=== PATIENT | female | born 1960 | race Caucasian/White ===

== ENCOUNTER 2023-10-19 04:46 | Emergency (ER) | payer BC, SELFPAY ==
[2023-10-19 04:49] VITALS: BP 140/82
[2023-10-19 05:07] VITALS: BMI 37.1
[2023-10-19 06:00] VITALS: BP 142/80
--- NOTE | 2023-10-19 06:43 | ED.GENMED ---
History of Present Illness
General
Chief Complaint: Headache
Time Seen by Provider: 10/19/23 06:43
Travel History
Have you had any contact with someone who has COVID-19?: No
Do you have any symptoms of coronavirus? Fever > 100 degrees, chills, cough, shortness of breath, sore throat, loss of taste or smell, muscle aches, or headache?: No
History of Present Illness
History of Present Illness:
HPI: Patient presents with a week of migraine type symptoms. This feels similar to prior migraine type headaches. She has associated nausea and photophobia. She at times has had some left-sided facial paresthesias and was described to have
complicated migraines in the past.
EXAM:
GENERAL: Well appearing but appears somewhat uncomfortable
HEENT: Moist oral mucosa
CARDIOVASCULAR: No murmurs, normal heart rate, regular rhythm, No chest wall tenderness
PULMONARY: No respiratory distress, breath sounds are clear and equal
ABDOMEN: Soft with no peritoneal signs, no tenderness, elevated BMI
NEUROLOGIC: Excellent strength all extremities, no coordination deficits
PSYCHIATRIC: Appropriate mental status, normal insight and judgement
EXTREMITIES: Nontender, no edema, moves all extremities equally
SKIN: No rash, no lesions
TIME OF INITIAL ENCOUNTER: 7 AM
NUMBER AND COMPLEXITY OF PROBLEMS ADDRESSED AT THE ENCOUNTER
� Chronic conditions affecting care: Diverticulitis, hyperlipidemia, WI, migraines, anxiety/depression
� Acute Exacerbation and/or Progression of Chronic Illness: Acute exacerbation of chronic migraine
� Differential Diagnosis includes: Acute exacerbation of chronic migraine, complicated migraine, nonspecific headache
AMOUNT AND/OR COMPLEXITY OF DATA TO BE REVIEWED AND ANALYZED
� I performed an independent evaluation of and my interpretation is:
EKG:
CT:
X-rays:
Laboratory Studies:
Other:
� Review of other/old records: CT brain in 2022 was unremarkable
� Clinical information was obtained by an independent historian: None needed
� Prescriptions/Medications Considered but not given:
� Further testing considered but not performed: Considered CT imaging however the patient has had CT imaging of the past and has had similar episodes in the past
RISK OF COMPLICATIONS AND/OR MORBIDITY OR MORTALITY OF PATIENT MANAGEMENT
� Social determinants of health affecting care: Lives at home
� Discussion with other providers:
� Escalation of care including admission/observation vs risk of discharge considered: The patient was given Toradol along with Reglan and Benadryl�I reassessed the patient at about 9 AM and she was feeling improved but wanted to
sleep for another half hour. I am currently told as of 9:40 AM that the patient had eloped. Overall she was improved and had told me that she was going to call a neighbor for a ride home.
Past History
Past History
ED Past Medical History: CAD (RCA stent 11/2019), HTN, Hypercholesterolemia, Hypothyroidism (Anxiety) and Other (Migraines ,diverticulitis, Cellulitis, Ileitis)
ED Past Surgical History: Bowel resection (with ileostomy reversal), Cardiac (RCA stent 11/2019), Gynecological (Total Hysterectomy) and Orthopedic
Patient has exhibited threatening behavior?: No
Social History
Tobacco: Smoker
Alcohol: None
Drug: Marijuana
Personal:
Living: with family
Employment: Employed
Family History
Family History: Other (She has a father with migraine headaches)
Phy Exam
Physical Exam
Physical Exam:
See HPI
Course
Orders/Labs/Results
Orders:
Orders
10/19/23 06:47
0.9% Sodium Chloride 1000 ml [Nss] 1,000 ml IV BOLUS
Diphenhydramine [Benadryl] 25 mg IV NOW STA
Ketorolac [Toradol] 15 mg IV NOW STA
Metoclopramide [Reglan] 10 mg IV NOW STA
Vital Signs
Initial and Last Documented VS:
Initial Vital Signs
Temp Pulse Resp BP Pulse Ox
98.4 F 88 22 140/82 96
10/19/23 04:49 10/19/23 04:49 10/19/23 04:49 10/19/23 04:49 10/19/23 04:49
Last Documented Vital Signs
Temp Pulse Resp BP Pulse Ox
98.4 F 85 16 142/80 98
10/19/23 04:49 10/19/23 06:00 10/19/23 06:00 10/19/23 06:00 10/19/23 06:00
*Critical Care Note
Total Time (30-74mins, 75-104mins- exclusive of procedures): Not Applicable
ED Attending Note
-
Portions of this chart may have been created with voice recognition software.� Occasional wrong word or��sound alike� substitutions may have occurred due to the inherent limitations of voice recognition software.
Discharge Plan
Departure
Patient Disposition: Elopement
Date of Disposition: 10/19/23
Time of Disposition: 09:41
Patient with high blood pressure during this ER visit?: Yes
Discharge Problem:
Migraine
Prescriptions:
No Action
diazepam 5 MG tablet
10 mg PO HS PRN (Reason: sleep issues)
desvenlafaxine succinate [Pristiq] 50 MG tablet extended release 24 hr
50 mg PO DAILY
aspirin 81 MG tablet,chewable
81 mg PO DAILY 0RF
lisinopril 2.5 MG tablet
2.5 mg PO DAILY Qty: 90 3RF
metoprolol succinate 50 MG tablet extended release 24 hr
50 mg PO DAILY Qty: 90 3RF
nitroglycerin 0.4 MG tablet, sublingual
0.4 mg sublingual [id number] PRN (Reason: chest pain) Qty: 25 2RF
ibuprofen [Advil] 200 mg Tablet
400 mg PO Q6H PRN (Reason: headache)
Medical Marijuana
5 mg PO DAILYPRN PRN (Reason: migraines)
Rx Instructions:
patient takes in gummy form, cuts 10 mg gummy in half
atorvastatin 40 MG tablet
40 mg PO HS
nitrofurantoin monohyd/m-cryst [Macrobid] 100 mg capsule
100 mg PO Q12H 5 Days Qty: 9 0RF
Referrals:
Sancho Sage DO [Family Provider] -
Interventions
Interventions:
*Risk Screen - Suicide Last Done: 10/19/23 04:49
*General Assessment Last Done: 10/19/23 05:07
*Neglect/Abuse Screening Last Done: 10/19/23 04:49
ED- Fall Risk Assessment Last Done: 10/19/23 05:07
*ED COVID-19 Vaccine History Last Done: 10/19/23 05:07
*Nursing Disposition Last Done: 10/19/23 10:04
ED- Neurological Assessment Last Done: 10/19/23 05:07
Discharge Date and Time
Discharge Date/Time: 10/19/23 09:50
[2023-10-19] MEDS: NSS 1000 IV (07:52)
[2023-10-19] MEDS: BENADRYL 25 MG IV (07:53)
[2023-10-19] MEDS: TORADOL 15 MG IV (07:53)
[2023-10-19] MEDS: REGLAN 10 MG IV (07:54)
--- NOTE | 2023-10-19 09:45 | EDRN ---
Went into reassess patient's pain level and patient not in the room. Gown on the stretcher and IV was in the trash can. Spoke to and he stated that when he spoke to the patient around 9:15 patient stated that she was feeling better
and needed about another 30-45 minutes before being discharged. He did not discharge the patient yet. Patient told him that she was calling a friend to come get her.
--- NOTE | 2023-10-19 10:05 | EDRN ---
Message left on patient's voicemail.
== END 2023-10-19 09:50 | disposition left against medical advice (07) ==
LOC: EMR 04:46
PROVIDERS: EMERGENCY PHYSICIAN Emergency Medicine; FAMILY PHYSICIAN Family Medicine
DX: G43.909 Migraine, unspecified, not intractable, without status migrainosus (principal); F17.200 Nicotine dependence, unspecified, uncomplicated; R03.0 Elevated blood-pressure reading, without diagnosis of hypertension; Z53.29 Procedure and treatment not carried out because of patient's decision for other reasons
CPT/HCPCS: 99284; 96374; 96375 ×2; 96361

== ENCOUNTER → 2023-10-28 17:06 | Outpatient (REF) | payer BC, SELFPAY | LOC: PAVMRI 17:06 | PROVIDERS: ATTENDING PHYSICIAN Family Medicine | DX: G43.709 Chronic migraine without aura, not intractable, without status migrainosus (principal); M54.2 Cervicalgia | CPT/HCPCS: 72141 ==

== ENCOUNTER 2024-02-21 11:14 | Emergency (ER) | payer BC, SELFPAY ==
[2024-02-21 11:23] VITALS: BP 133/107
[2024-02-21 13:30] VITALS: BP 110/82
[2024-02-21] MEDS: TORADOL 15 MG IV (13:31)
[2024-02-21] MEDS: BENADRYL 12.5 MG IV (13:32)
[2024-02-21] MEDS: DECADRON 10 MG IV (13:34)
[2024-02-21] MEDS: COMPAZINE 10 MG IV (13:34)
[2024-02-21 14:00] VITALS: BP 118/74
--- NOTE | 2024-02-21 14:41 | ED.GENMED ---
History of Present Illness
General
Chief Complaint: Headache
Source: patient and records
Exam Limitations: none
Time Seen by Provider: 02/21/24 12:44
Nursing documentation reviewed up to this point in time: agreed with
History of Present Illness
History of Present Illness:
Patient is a 64-year-old female with a history of chronic migraines and for the past 8 days of 14 has had diffuse headaches that are consistent with her migraines. The worst is in the right occipital area where she has cervical spine arthritis in
addition to migraines. Patient was being followed down at [place] by neuro but has not been being helped. Patient has seen her primary care physician for pain management. Patient's nauseous without vomiting. Patient admits to photophobia.
Patient denies any recent illnesses or injuries. Patient denies fever chills, nasal congestion, sore throat or cough. Patient denies any visual difficulties outside of photophobia. Patient denies any speech difficulties, focal weakness or ataxia.
Patient has not taken anything for the pain. Patient does have a rather extensive vascular history.
Past History
Past History
ED Past Medical History: CAD (RCA stent 11/2019), HTN, Hypercholesterolemia, Hypothyroidism (Anxiety) and Other (Migraines ,diverticulitis, Cellulitis, Ileitis)
ED Past Surgical History: Bowel resection (with ileostomy reversal), Cardiac (RCA stent 11/2019), Gynecological (Total Hysterectomy) and Orthopedic
Patient has exhibited threatening behavior?: No
Social History
Tobacco: Smoker
Alcohol: None
Drug: Marijuana
Personal:
Living: with family
Employment: Employed
Family History
Family History: Other (She has a father with migraine headaches)
Review of Systems
Review of Systems
All Other Systems: ROS reviewed and negative except as documented in HPI and ROS
Constitutional: Reports fatigue; Denies fever or chills
EENT: Reports other (Photophobia); Denies sore throat, mouth pain, mouth swelling or runny nose
Respiratory: Reports no symptoms
Cardiac: Reports no symptoms
ABD/GI: Reports nausea; Denies abdominal pain, vomiting or diarrhea
: Reports no symptoms
Musculoskeletal: Reports neck pain
Skin: Reports no symptoms
Neurological: Reports headache; Denies dizzy, weakness or numbness
Hematologic/Lymphatic: Reports no symptoms
Phy Exam
Physical Exam
Physical Exam:
Physical Exam
General: mild to moderate distress, alert and appropriate, well nourished, well hydrated
HENT: Normocephalic and atraumatic with mild tenderness in the right occipital condyle, supple with no lymphadenopathy, no thyromegaly
Eyes: Clear sclera, conjuctiva without injection
Heart: Regular rhythm and rate. No S3, S4. No murmur. No NVD, bruit
Lungs: No respiratory distress, no stridor, lung sounds clear and equal bilaterally
Abdomen: Soft, nontender, BS good
Neuro: Alert and oriented x 3, CN II - XII intact, no motor focality, no cerebellar dysfunction
Skin: no rash
Psychiatric: well kept. interactive and cooperative
Extremities: No edema, cyanosis, tenderness
Course
Orders/Labs/Results
Orders:
Orders
02/21/24 12:52
Dexamethasone Sod Phosphate [Decadron] 10 mg IV NOW STA
Diphenhydramine [Benadryl] 12.5 mg IV NOW STA
Ketorolac [Toradol] 15 mg IV NOW STA
Prochlorperazine [Compazine] 10 mg IV NOW STA
02/21/24 14:40
Fentanyl Citrate/Pf [Sublimaze] 50 mcg IV NOW STA
Vital Signs
Initial and Last Documented VS:
Initial Vital Signs
Temp Pulse Resp BP Pulse Ox
99.0 F 94 18 133/107 97
02/21/24 11:23 02/21/24 11:23 02/21/24 11:23 02/21/24 11:23 02/21/24 11:23
Last Documented Vital Signs
Temp Pulse Resp BP Pulse Ox
99.0 F 85 20 118/74 93
02/21/24 11:23 02/21/24 14:00 02/21/24 14:00 02/21/24 14:00 02/21/24 14:00
*Radiology
Radiology exam reviewed: other (na)
*Pulse Oximetry
Patient hypoxic: no
*EKG
Interpreted by ED Provider?: NA
*Cloth Tester Interpretation
Rate: Cloth Tester- N/A
*Critical Care Note
Total Time (30-74mins, 75-104mins- exclusive of procedures): Not Applicable
Update Note
Update Note:
Patient appears better and had to be awakened from sleep but states her headaches are no better. Anticipate the patient be able to discharge. Unsure whether this is more chronic pain due to cervical arthritis or actual migraines. Patient is
neurologically intact.
ED Attending Note
-
Portions of this chart may have been created with voice recognition software.� Occasional wrong word or��sound alike� substitutions may have occurred due to the inherent limitations of voice recognition software.
Discharge Plan
Departure
Patient Disposition: Home (Routine Discharge)
Date of Disposition: 02/21/24
Time of Disposition: 15:14
Patient with high blood pressure during this ER visit?: No
Condition: Fair
Covid-19: Not Applicable
Discharge Problem:
Headache
Instructions: Migraines (DC), Headache, Adult (DC)
Prescriptions:
New
butorphanol 10 mg/mL spray,non-aerosol
1 spray intranasal Q4H PRN (Reason: headache) Qty: 2.5 0RF
No Action
diazepam 5 MG tablet
10 mg PO HS PRN (Reason: sleep issues)
desvenlafaxine succinate [Pristiq] 50 MG tablet extended release 24 hr
50 mg PO DAILY
aspirin 81 MG tablet,chewable
81 mg PO DAILY 0RF
lisinopril 2.5 MG tablet
2.5 mg PO DAILY Qty: 90 3RF
metoprolol succinate 50 MG tablet extended release 24 hr
50 mg PO DAILY Qty: 90 3RF
nitroglycerin 0.4 MG tablet, sublingual
0.4 mg sublingual [id number] PRN (Reason: chest pain) Qty: 25 2RF
ibuprofen [Advil] 200 mg Tablet
400 mg PO Q6H PRN (Reason: headache)
Medical Marijuana
5 mg PO DAILYPRN PRN (Reason: migraines)
Rx Instructions:
patient takes in gummy form, cuts 10 mg gummy in half
atorvastatin 40 MG tablet
40 mg PO HS
Referrals:
Sancho Sage DO [Family Provider] - Follow up in 2-3 days
Interventions
Interventions:
*Risk Screen - Suicide Last Done: 02/21/24 13:30
*General Assessment Last Done: 02/21/24 11:23
*Neglect/Abuse Screening Last Done: 02/21/24 13:30
*ED COVID-19 Vaccine History Last Done: 02/21/24 11:23
ED- Neurological Assessment Last Done: 02/21/24 13:30
Discharge Date and Time
Print Language: GERMAN
[2024-02-21 15:00] VITALS: BP 128/86
[2024-02-21] MEDS: SUBLIMAZE 50 MCG IV (15:06)
[2024-02-21 16:00] VITALS: BP 121/75
== END 2024-02-21 16:30 | disposition home or self-care (01) ==
LOC: EMR 11:14
PROVIDERS: EMERGENCY PHYSICIAN Emergency Medicine; FAMILY PHYSICIAN Family Medicine
DX: R51.9 Headache, unspecified (principal); F17.200 Nicotine dependence, unspecified, uncomplicated
CPT/HCPCS: 99284; 96374; 96375 ×4

== ENCOUNTER 2024-05-04 06:39 | Emergency (ER) | payer BC, SELFPAY ==
[2024-05-04 06:41] VITALS: BP 126/88
--- NOTE | 2024-05-04 07:31 | ED.GENMED ---
History of Present Illness
General
Chief Complaint: Back Pain
Source: patient
Exam Limitations: none
Time Seen by Provider: 05/04/24 07:10
Nursing documentation reviewed up to this point in time: agreed with
History of Present Illness
History of Present Illness:
Patient is a 63-year-old female who drove to the ER for evaluation of worsening low back pain. Patient reports on Thursday , 4 days ago [place] the chair slipped and she fell landing on her back.
She crawled to get help and was taken to the hospital in the [facility] and diagnosed with compression fractures in her back. She was sent home on ibuprofen and Tylenol however that was not work she reports a family doctor Dr. Sage did get the
CAT scan report and did send her prescription of Percocet to her pharmacy however this is not working. She can barely stand up to get dressed wipe her self and get around. She complains of pain across her lower back it does radiate to her left leg
at times. She does live at times with her though they are . She denies any loss of bowel or bladder. She denies any other injuries and did not hit her head. She does have history of MA with stents and is on aspirin no other blood
thinners. She is a smoker.
Past History
Past History
ED Past Medical History: CAD (RCA stent 11/2019), HTN, Hypercholesterolemia, Hypothyroidism (Anxiety) and Other (Migraines ,diverticulitis, Cellulitis, Ileitis)
ED Past Surgical History: Bowel resection (with ileostomy reversal), Cardiac (RCA stent 11/2019), Gynecological (Total Hysterectomy) and Orthopedic
Patient has exhibited threatening behavior?: No
Social History
Tobacco: Smoker
Alcohol: None
Drug: Marijuana
Personal:
Living: with family
Employment: Employed
Family History
Family History: Other (She has a father with migraine headaches)
Review of Systems
Review of Systems
Allergies reviewed?: Yes
All Other Systems: ROS reviewed and negative except as documented in HPI and ROS
Constitutional: Reports no symptoms; Denies fever
Respiratory: Reports no symptoms
Cardiac: Reports no symptoms
ABD/GI: Reports no symptoms
: Reports no symptoms; Denies incontinence
Musculoskeletal: Reports back pain (low back)
Skin: Reports no symptoms
Neurological: Reports no symptoms
Psychiatric: Reports no symptoms
Phy Exam
General Physical Exam
General Presentation: no apparent distress
General age: appears stated age
General Skin: warm and dry
General Habitus: normal
General Mental: alert
General Hydration: appears well hydrated
Neurological Exam
Neurological Exam: alert, oriented x3 and other (Normal sensation bilateral extremities normal dorsiflexion plantarflexion)
Musculoskeletal Exam
Musculoskeletal Exam: other (Normal inspection to backup administrator to the mid lumbar region no ecchymosis abrasions)
Course
Orders/Labs/Results
Orders:
Orders
05/04/24 07:32
IV Insert/Care/Rem.- Treatment PRN
0.9% Sodium Chloride 1000 ml [Nss] 1,000 ml IV BOLUS
Morphine Sulfate 2 mg IV NOW STA
05/04/24 07:34
Dexamethasone Sod Phosphate [Decadron] 10 mg IV NOW STA
Lidocaine [Lidocaine 4% Patch] 1 patch TOPICAL NOW STA
Apply Lidocaine patch(s) to:: low ander
05/04/24 07:54
Complete Blood Count/With Diff Urgent
Comprehensive Metabolic Panel Urgent
Abnormal Lab Results
05/04/24
07:54
WBC 11.2 H 10^3/uL
(4.8-10.8)
MPV 11.3 H fL
(7.4-10.4)
Abs Immat Gran (auto) 0.1 H 10^3/uL
(0-0.05)
Absolute Neuts (auto) 8.1 H 10^3/uL
(1.4-6.5)
Absolute Monos (auto) 0.7 H 10^3/uL
(0.1-0.6)
Immature Gran % 0.7 H %
(0-0.5)
Lymphocytes % 16.4 L %
(20.5-51.1)
Glucose 174 H mg/dl
(70-99)
Total Protein 5.9 L g/dl
(6.3-8.2)
05/04/24 07:54
05/04/24 07:54
Vital Signs
Initial and Last Documented VS:
Initial Vital Signs
Temp Pulse Resp BP Pulse Ox
98.9 F 98 20 126/88 95
05/04/24 06:41 05/04/24 06:41 05/04/24 06:41 05/04/24 06:41 05/04/24 06:41
Last Documented Vital Signs
Temp Pulse Resp BP Pulse Ox
98.9 F 86 18 113/66 94
05/04/24 06:41 05/04/24 09:00 05/04/24 09:00 05/04/24 09:00 05/04/24 09:00
MDM/Problems Addressed
MDM/Problems Addressed:
As documented patient is a 63-year-old female who complains of low back pain. She fell off of a chair several days ago and was seen in the [facility]. I did receive paperwork /records from [facility]. She had imaging including
the head and C-spine and lumbar spine. Lumbar spine CAT scan does show small subtle fracture of the right anterior superior aspect of L2.
Patient received morphine here feeling much better ambulatory [id number] to the bathroom with a steady gait. She does want to go home. She has no neurological deficits and is well-appearing. She was instructed by family doctor to alternate
Tylenol Motrin will give her ice short course of oxycodone to take as needed with close outpatient follow-up with family doctor and also recommend orthopedics pain management Dr. Bowles.
*Critical Care Note
Total Time (30-74mins, 75-104mins- exclusive of procedures): Not Applicable
ED Attending Note
-
Portions of this chart may have been created with voice recognition software.� Occasional wrong word or��sound alike� substitutions may have occurred due to the inherent limitations of voice recognition software.
Discharge Plan
Departure
Patient Disposition: Home (Routine Discharge)
Date of Disposition: 05/04/24
Time of Disposition: 10:09
Patient with high blood pressure during this ER visit?: No
Condition: Fair
Covid-19: Not Applicable
Discharge Problem:
Low back pain
Instructions: Low Back Pain (DC), BLOOD PRESSURE
Prescriptions:
New
oxycodone 5 mg capsule
5 mg PO Q8H PRN (Reason: Pain) Qty: 10 0RF
lidocaine 5 % adhesive patch,medicated
1 patch topical DAILY Qty: 15 0RF
Rx Instructions:
remove after 12 hrs
oxycodone 5 mg capsule
5 mg PO Q8H PRN (Reason: Pain) Qty: 10 0RF
No Action
diazepam 5 MG tablet
10 mg PO HS PRN (Reason: sleep issues)
desvenlafaxine succinate [Pristiq] 50 MG tablet extended release 24 hr
50 mg PO DAILY
aspirin 81 MG tablet,chewable
81 mg PO DAILY 0RF
lisinopril 2.5 MG tablet
2.5 mg PO DAILY Qty: 90 3RF
metoprolol succinate 50 MG tablet extended release 24 hr
50 mg PO DAILY Qty: 90 3RF
nitroglycerin 0.4 MG tablet, sublingual
0.4 mg sublingual [id number] PRN (Reason: chest pain) Qty: 25 2RF
ibuprofen [Advil] 200 mg Tablet
400 mg PO Q6H PRN (Reason: headache)
Medical Marijuana
5 mg PO DAILYPRN PRN (Reason: migraines)
Rx Instructions:
patient takes in gummy form, cuts 10 mg gummy in half
atorvastatin 40 MG tablet
40 mg PO HS
butorphanol 10 mg/mL spray,non-aerosol
1 spray intranasal Q4H PRN (Reason: headache) Qty: 2.5 0RF
Referrals:
Pedro Bowles, DO [Non-Admitting Privileges] -
Sancho Sage, [Family Provider] -
Activity Restrictions/Additional Instructions:
As discussed you may continue to alternate between Motrin and Tylenol however if needed you may take oxycodone. This however is a narcotic and will cause drowsiness. No driving or drinking alcohol while taking this medication. This also cause
constipation is recommended you take [id number] laxative like Senokot plus stool softener. A prescription for lidocaine patch was sent to pharmacy take as directed. Follow-up with your family doctor next 2 days as well as orthopedics.
Return if any worsening of symptoms if increased pain loss of bowel or bladder numbness tingling weakness in extremities.
Do not use your medical marijuana for migraines while taking this medication.,
Interventions
Interventions:
*Risk Screen - Suicide Last Done: 05/04/24 06:41
*General Assessment Last Done: 05/04/24 06:41
*Neglect/Abuse Screening Last Done: 05/04/24 06:41
*ED COVID-19 Vaccine History Last Done: 05/04/24 07:58
ED-Musculoskeletal Assessment Last Done: 05/04/24 07:56
Discharge Date and Time
Print Language: CHILEAN
[2024-05-04] MEDS: NSS 1000 IV (07:51)
[2024-05-04] MEDS: DECADRON 10 MG IV (07:51)
[2024-05-04] MEDS: MORPHINE SULFATE 2 MG IV (07:51)
[2024-05-04] MEDS: LIDOCAINE 4% PATCH 1 PATCH TOPICAL (07:52)
[2024-05-04 07:56] VITALS: BMI 38.5
[2024-05-04 08:00] LABS: % Basophils 0.4 % (0-2); % Immature Granulocytes 0.7 % (0-0.5); % Lymphocytes 16.4 % (20.5-51.1); % Monocytes 6.6 % (1.7-9.3); % Neutrophils 72.9 % (42.2-75.2); Absolute Basophils 0.1 10^3/uL (0-0.2); Absolute Eosinophils 0.3 10^3/uL (0-0.7); Absolute Immature Granulocytes 0.1 10^3/uL (0-0.05); Absolute Lymphocytes 1.8 10^3/uL (1.2-3.4); Absolute Monocytes 0.7 10^3/uL (0.1-0.6); Absolute Neutrophils 8.1 10^3/uL (1.4-6.5); Hematocrit 46.2 % (37.0-47.0); Hemoglobin 15.6 g/dL (12.0-16.0); Mean Corp Hgb Conc. 33.8 g/dL (33.0-37.0); Mean Corpuscular Volume 88.8 fL (81.0-99.0); Mean Platelet Volume 11.3 fL (7.4-10.4); Nucleated Red Blood Cells % 0 %; Platelet Count 197 10^3/uL (130-400); Red Cell Dist. Width 13.1 % (11.5-14.5); White Blood Cell Count 11.2 10^3/uL (4.8-10.8)
[2024-05-04 08:27] LABS: ALT (SGPT) 21 U/L (0-35); AST (SGOT) 19 U/L (14-36); Albumin 3.8 g/dl (3.5-5.0); Alkaline Phosphatase 75 U/L (38-126); Blood Urea Nitrogen 11 mg/dl (7-17); Calcium 9.3 mg/dl (8.4-10.2); Carbon Dioxide 28 mmol/L (22-30); Chloride 102 mmol/L (98-107); Estimated Creatinine Clearance 105 ml/min; Glucose 174 mg/dl (70-99); Potassium 4.6 mmol/L (3.5-5.1); Sodium 138 mmol/L (135-145); Total Bilirubin 0.4 mg/dl (0.2-1.3); Total Protein 5.9 g/dl (6.3-8.2); eGFR > 60.00
[2024-05-04 09:00] VITALS: BP 113/66
[2024-05-04 10:41] VITALS: BP 116/69
== END 2024-05-04 11:19 | disposition home or self-care (01) ==
LOC: EMR 06:39
PROVIDERS: Nurse Practitioner; EMERGENCY PHYSICIAN Emergency Medicine; FAMILY PHYSICIAN Family Medicine
DX: M54.50 Low back pain, unspecified (principal); M79.605 Pain in left leg; S32.009A Unspecified fracture of unspecified lumbar vertebra, initial encounter for closed fracture; W07.XXXA Fall from chair, initial encounter; I10 Essential (primary) hypertension; I25.10 Atherosclerotic heart disease of native coronary artery without angina pectoris; E78.00 Pure hypercholesterolemia, unspecified; E03.9 Hypothyroidism, unspecified; F41.9 Anxiety disorder, unspecified; G43.909 Migraine, unspecified, not intractable, without status migrainosus; K57.92 Diverticulitis of intestine, part unspecified, without perforation or abscess without bleeding; F17.200 Nicotine dependence, unspecified, uncomplicated; I25.2 Old myocardial infarction; Z95.5 Presence of coronary angioplasty implant and graft; Z79.82 Long term (current) use of aspirin; Z98.0 Intestinal bypass and anastomosis status
CPT/HCPCS: 99284; 96374; 96375; 96361; 80053; 85025

== ENCOUNTER 2024-05-06 14:06 | Emergency (ER) | payer BC, SELFPAY ==
[2024-05-06 14:08] VITALS: BP 128/95
[2024-05-06 14:45] VITALS: BMI 32.0
--- NOTE | 2024-05-06 15:15 | ED.GENMED ---
History of Present Illness
General
Chief Complaint: Back Pain
Source: patient
Exam Limitations: none
Time Seen by Provider: 05/06/24 15:10
Nursing documentation reviewed up to this point in time: agreed with
History of Present Illness
History of Present Illness:
63 yr. old female presents back to the ED for low back pain. Pt was seen here 2 d ago.
Last Thursday pt was standing on chair fell and hit her lower back. SHe went to local hospital at that time and was dx with small subtle fx of the right anterior superior aspect of L2. THese results was obtained from [facility] during
last ED visit 2 d ago and results were scanned into chart.
Pt was discharged home on Oxycodone but c/o of continued back pain. She currently is in the middle of a divorce and lives at home with her dog.
She is scheduled to see DR Bowles next .
She feels pain radiating down her left hip. She denies any weakness in lower extremities. She denies any incontinence of bowel or bladder.
She has been taking Tylenol as well.
Past History
Past History
ED Past Medical History: CAD (RCA stent 11/2019), HTN, Hypercholesterolemia, Hypothyroidism (Anxiety) and Other (Migraines ,diverticulitis, Cellulitis, Ileitis)
ED Past Surgical History: Bowel resection (with ileostomy reversal), Cardiac (RCA stent 11/2019), Gynecological (Total Hysterectomy) and Orthopedic
Patient has exhibited threatening behavior?: No
Social History
Tobacco: Smoker
Alcohol: None
Drug: Marijuana
Personal:
Living: with family
Employment: Employed
Family History
Family History: Other (She has a father with migraine headaches)
Phy Exam
General Physical Exam
General Presentation: no apparent distress
General age: appears stated age
General Skin: warm and dry
General Habitus: normal
General Mental: alert
General Hydration: appears well hydrated
Neurological Exam
Neurological Exam: alert, oriented x3 and other (Normal dorsiflexion plantarflexion bilaterally negative straight leg raise; normal distal strength and sensation and reflexes )
Musculoskeletal Exam
Musculoskeletal Exam: full ROM and other (normal inspection )
Skin Exam
Skin Exam: normal color and warm/dry
Psychiatric Exam
Psychiatric Exam: normal mood/affect
Course
Orders/Labs/Results
Orders:
Orders
05/06/24 15:21
Physical Therapy Consult [Pt Eval And Treat] Urgent
Activity Level: Ambulate
05/06/24 16:09
Prednisone [Deltasone] 50 mg PO NOW STA
Vital Signs
Initial and Last Documented VS:
Initial Vital Signs
Temp Pulse Resp BP Pulse Ox
98.3 F 99 18 128/95 93
05/06/24 14:08 05/06/24 14:08 05/06/24 14:08 05/06/24 14:08 05/06/24 14:08
Last Documented Vital Signs
Temp Pulse Resp BP Pulse Ox
98.3 F 99 18 128/95 93
05/06/24 14:08 05/06/24 14:08 05/06/24 14:08 05/06/24 14:08 05/06/24 14:08
MDM/Problems Addressed
Differential Diagnosis Includes:
not limited to: low back pain
MDM/Problems Addressed:
As documented patient is a 63-year-old female who was here 2 days ago for back and previous to that was seen at [facility] in the [facility] after having a fall. CAT scan of the lumbar spine did show subtle fracture right anterior
superior aspect of L2. Patient was seen here 2 days ago and discharged on oxycodone continue to complains of pain. She has some mild radiation to her left hip. She is scheduled to see Dr. Bowles next week. Daughter did however speak with nurse
and has concerns for patient seeking narcotic pain medication. Will hold off on any additional pain medication at home. Patient was evaluate by physical and does ambulate with walker well. I Did write a prescription for patient to have a
walker. She feels comfortable going home will add on steroids. she is in no distress nml neuro exam
Chronic conditions affecting care:
questionable issues with narcotics in the past
*Radiology
Radiology exam reviewed: other (previous ct scan done at outside hospital)
*Pulse Oximetry
Patient hypoxic: no
*Critical Care Note
Total Time (30-74mins, 75-104mins- exclusive of procedures): Not Applicable
ED Attending Note
-
Portions of this chart may have been created with voice recognition software.� Occasional wrong word or��sound alike� substitutions may have occurred due to the inherent limitations of voice recognition software.
Discharge Plan
Departure
Patient Disposition: Home (Routine Discharge)
Date of Disposition: 05/06/24
Time of Disposition: 16:11
Patient with high blood pressure during this ER visit?: Yes
Condition: Fair
Covid-19: Not Applicable
Discharge Problem:
Low back pain
Instructions: Low Back Pain (DC), Radiculopathy (DC), BLOOD PRESSURE
Prescriptions:
New
prednisone 10 mg Tablet
See Rx Instructions .ROUTE .COMPLEX Qty: 30 0RF
Rx Instructions:
Take By Mouth:
40 mg daily x3 days, 30 mg daily x3 days,
20 mg daily x3 days, 10 mg daily x3 days.
No Action
diazepam 5 MG tablet
10 mg PO HS PRN (Reason: sleep issues)
desvenlafaxine succinate [Pristiq] 50 MG tablet extended release 24 hr
50 mg PO DAILY
aspirin 81 MG tablet,chewable
81 mg PO DAILY 0RF
lisinopril 2.5 MG tablet
2.5 mg PO DAILY Qty: 90 3RF
metoprolol succinate 50 MG tablet extended release 24 hr
50 mg PO DAILY Qty: 90 3RF
nitroglycerin 0.4 MG tablet, sublingual
0.4 mg sublingual [id number] PRN (Reason: chest pain) Qty: 25 2RF
ibuprofen [Advil] 200 mg Tablet
400 mg PO Q6H PRN (Reason: headache)
Medical Marijuana
5 mg PO DAILYPRN PRN (Reason: migraines)
Rx Instructions:
patient takes in gummy form, cuts 10 mg gummy in half
atorvastatin 40 MG tablet
40 mg PO HS
butorphanol 10 mg/mL spray,non-aerosol
1 spray intranasal Q4H PRN (Reason: headache) Qty: 2.5 0RF
oxycodone 5 mg capsule
5 mg PO Q8H PRN (Reason: Pain) Qty: 10 0RF
lidocaine 5 % adhesive patch,medicated
1 patch topical DAILY Qty: 15 0RF
Rx Instructions:
remove after 12 hrs
Referrals:
Pedro Bowles DO [Non-Admitting Privileges] -
Sancho Sage DO [Family Provider] -
Activity Restrictions/Additional Instructions:
As discussed complete your pain medication at home and continue to alternate with Tylenol. You were given a dose of steroids here in the ER and a prescription for steroid taper for send your pharmacy take as directed starting tomorrow. Follow-up
with Dr. Bowles in the next several days as scheduled and return if any worsening of symptoms.
Interventions
Interventions:
*Risk Screen - Suicide Last Done: 05/06/24 14:08
*General Assessment Last Done: 05/06/24 14:08
*Neglect/Abuse Screening Last Done: 05/06/24 14:08
ED- Fall Risk Assessment Last Done: 05/06/24 14:45
*ED COVID-19 Vaccine History Last Done: 05/06/24 14:45
*Nursing Disposition Last Done: 05/06/24 16:31
ED-Musculoskeletal Assessment Last Done: 05/06/24 14:45
Discharge Date and Time
Discharge Date/Time: 05/06/24 16:32
Print Language: ALBANIAN
--- NOTE | 2024-05-06 15:36 | EDRN ---
physical therapy currently at the pts bedside
== END 2024-05-06 16:32 | disposition home or self-care (01) ==
LOC: EMR 14:06
PROVIDERS: EMERGENCY PHYSICIAN Student in an Organized Health Care Education/Training Program; FAMILY PHYSICIAN Family Medicine
DX: M54.50 Low back pain, unspecified (principal); M25.552 Pain in left hip; I10 Essential (primary) hypertension; E78.00 Pure hypercholesterolemia, unspecified; E03.9 Hypothyroidism, unspecified; F41.9 Anxiety disorder, unspecified; I25.10 Atherosclerotic heart disease of native coronary artery without angina pectoris; G43.909 Migraine, unspecified, not intractable, without status migrainosus; K57.92 Diverticulitis of intestine, part unspecified, without perforation or abscess without bleeding; F17.200 Nicotine dependence, unspecified, uncomplicated; Z79.82 Long term (current) use of aspirin; Z95.5 Presence of coronary angioplasty implant and graft; Z98.0 Intestinal bypass and anastomosis status
CPT/HCPCS: 99283

== ENCOUNTER 2024-05-07 14:58 | Observation (INO) | payer BC, SELFPAY ==
[2024-05-07] VITALS (10 sets, daily range): BP systolic 124–168; BP diastolic 68–109; BMI 38.6; BMI 38.1
--- NOTE | 2024-05-07 09:36 | ED.GENMED ---
History of Present Illness
General
Chief Complaint: Fall
Source: patient
Exam Limitations: none
Time Seen by Provider: 05/07/24 09:14
Nursing documentation reviewed up to this point in time: agreed with
History of Present Illness
History of Present Illness:
Patient is a 63-year-old female who presents to the ER for low back pain. This is patient's third ER visit. Patient was initially seen May 04 as well as yesterday. She reports she initially fell last week (end of April) while in her
[place] and was seen at [facility]. At that time he had CAT scans which did show lumbar compression fractures. Official records were sent from [facility] which did show small subtle fracture of the right anterior
superior aspect of L2. She was seen here on the second for pain however after pain medication felt better. She has appointment with Dr. Bowles pain management however was seen here yesterday because she could not make it because of pain. Patient
has been taking oxycodone which is not relieving her symptoms. She has felt pain across her low back and into her left leg.
She denies any incontinence of bowel bladder.
Past History
Past History
ED Past Medical History: CAD (RCA stent 11/2019), HTN, Hypercholesterolemia, Hypothyroidism (Anxiety) and Other (Migraines ,diverticulitis, Cellulitis, Ileitis)
ED Past Surgical History: Bowel resection (with ileostomy reversal), Cardiac (RCA stent 11/2019), Gynecological (Total Hysterectomy) and Orthopedic
Patient has exhibited threatening behavior?: No
Social History
Tobacco: Smoker
Alcohol: None
Drug: Marijuana
Personal:
Living: with family
Employment: Employed
Family History
Family History: Other (She has a father with migraine headaches)
Review of Systems
Review of Systems
Allergies reviewed?: Yes
All Other Systems: ROS reviewed and negative except as documented in HPI and ROS
Constitutional: Reports no symptoms
Respiratory: Reports no symptoms
Cardiac: Reports no symptoms
ABD/GI: Reports no symptoms
: Denies incontinence
Musculoskeletal: Reports back pain
Skin: Reports no symptoms
Neurological: Reports no symptoms; Denies weakness
Hematologic/Lymphatic: Reports no symptoms
Psychiatric: Reports no symptoms
Phy Exam
General Physical Exam
General Presentation: no apparent distress
General age: appears stated age
General Skin: warm and dry
General Habitus: normal
General Mental: alert
General Hydration: appears well hydrated
Cardiovascular Exam
Cardiovascular Exam: regular rate/rhythm, no murmur and normal peripheral pulses
Pulmonary Exam
Pulmonary Exam: lungs clear and no respiratory distress
Neurological Exam
Neurological Exam: alert, oriented x3 and other (Normal distal sensation bilateral lower extremities normal dorsiflexion plantarflexion)
Musculoskeletal Exam
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
Skin Exam
Skin Exam: normal color and warm/dry
Psychiatric Exam
Psychiatric Exam: normal mood/affect
Course
Orders/Labs/Results
Orders:
Orders
05/07/24 09:44
IV Insert/Care/Rem.- Treatment PRN
Dexamethasone Sod Phosphate [Decadron] 10 mg IV NOW STA
Morphine Sulfate 4 mg IV NOW STA
05/07/24 09:53
Complete Blood Count/With Diff Urgent
Comprehensive Metabolic Panel Urgent
Abnormal Lab Results
05/07/24
09:53
WBC 11.9 H 10^3/uL
(4.8-10.8)
Hgb 16.1 H g/dL
(12.0-16.0)
MPV 10.8 H fL
(7.4-10.4)
Abs Immat Gran (auto) 0.1 H 10^3/uL
(0-0.05)
Absolute Neuts (auto) 9.3 H 10^3/uL
(1.4-6.5)
Absolute Monos (auto) 0.7 H 10^3/uL
(0.1-0.6)
Immature Gran % 0.8 H %
(0-0.5)
Neutrophils % 77.8 H %
(42.2-75.2)
Lymphocytes % 12.5 L %
(20.5-51.1)
Glucose 127 H mg/dl
(70-99)
Total Protein 6.2 L g/dl
(6.3-8.2)
05/07/24 09:53
05/07/24 09:53
Vital Signs
Initial and Last Documented VS:
Initial Vital Signs
Temp Pulse Resp BP Pulse Ox
98.0 F 81 16 144/96 94
05/07/24 08:38 05/07/24 08:38 05/07/24 08:38 05/07/24 08:38 05/07/24 08:38
Last Documented Vital Signs
Temp Pulse Resp BP Pulse Ox
98.0 F 81 16 144/96 94
05/07/24 08:38 05/07/24 08:38 05/07/24 08:38 05/07/24 08:38 05/07/24 08:38
MDM/Problems Addressed
MDM/Problems Addressed:
This is patient's third ER visit for back pain related to recent diagnosis of compression fracture. Patient has been taking oxycodone and does have an appointment with Dr. Bowles this week however with persistent pain will require admission.
Patient does report pain is across her low back and her left leg but denies any weakness in lower extremities. She is having difficulty however getting around because of pain. She denies any bowel bladder incontinence. Will check labs give a dose
of Decadron pain medication and admit to the hospital service
*Pulse Oximetry
Patient hypoxic: no
*Critical Care Note
Total Time (30-74mins, 75-104mins- exclusive of procedures): Not Applicable
Data Reviewed
Review of Other/Old Records Reveals: Other (Previous ED visits previous scanned report from outpatient hospital of CAT scan lumbar)
Source: patient
ED Attending Note
-
Portions of this chart may have been created with voice recognition software.� Occasional wrong word or��sound alike� substitutions may have occurred due to the inherent limitations of voice recognition software.
Discharge Plan
Departure
Patient Disposition: Admit
Date of Disposition: 05/07/24
Time of Disposition: 10:42
Admit to: Med/Surg
Admit to doctor: hospitalist
Presentation/result/management discussed w/ accepting MD/DO: Hospitalist
Patient with high blood pressure during this ER visit?: Yes
Condition: Fair
Covid-19: Not Applicable
Discharge Problem:
Low back pain
Prescriptions:
No Action
diazepam 5 MG tablet
10 mg PO HS PRN (Reason: sleep issues)
desvenlafaxine succinate [Pristiq] 50 MG tablet extended release 24 hr
50 mg PO DAILY
aspirin 81 MG tablet,chewable
81 mg PO DAILY 0RF
lisinopril 2.5 MG tablet
2.5 mg PO DAILY Qty: 90 3RF
metoprolol succinate 50 MG tablet extended release 24 hr
50 mg PO DAILY Qty: 90 3RF
nitroglycerin 0.4 MG tablet, sublingual
0.4 mg sublingual [id number] PRN (Reason: chest pain) Qty: 25 2RF
ibuprofen [Advil] 200 mg Tablet
400 mg PO Q6H PRN (Reason: headache)
Medical Marijuana
5 mg PO DAILYPRN PRN (Reason: migraines)
Rx Instructions:
patient takes in gummy form, cuts 10 mg gummy in half
atorvastatin 40 MG tablet
40 mg PO HS
butorphanol 10 mg/mL spray,non-aerosol
1 spray intranasal Q4H PRN (Reason: headache) Qty: 2.5 0RF
oxycodone 5 mg capsule
5 mg PO Q8H PRN (Reason: Pain) Qty: 10 0RF
lidocaine 5 % adhesive patch,medicated
1 patch topical DAILY Qty: 15 0RF
Rx Instructions:
remove after 12 hrs
prednisone 10 mg Tablet
See Rx Instructions .ROUTE .COMPLEX Qty: 30 0RF
Rx Instructions:
Take By Mouth:
40 mg daily x3 days, 30 mg daily x3 days,
20 mg daily x3 days, 10 mg daily x3 days.
Referrals:
Sancho Sage DO [Family Provider] -
Interventions
Interventions:
*Risk Screen - Suicide Last Done: 05/07/24 08:38
*General Assessment Last Done: 05/07/24 08:38
*Neglect/Abuse Screening Last Done: 05/07/24 08:38
*ED COVID-19 Vaccine History Last Done: 05/07/24 08:38
ED-Musculoskeletal Assessment Last Done: 05/07/24 08:50
ED- Neurological Assessment Last Done: 05/07/24 08:50
ED-Skin Assessment Last Done: 05/07/24 08:50
Discharge Date and Time
Print Language: KENYAN
[2024-05-07] MEDS: MORPHINE SULFATE 4 MG IV (10:05)
[2024-05-07] MEDS: DECADRON 10 MG IV (10:05)
[2024-05-07 10:16] LABS: % Basophils 0.5 % (0-2); % Eosinophils 2.3 % (0-6); % Immature Granulocytes 0.8 % (0-0.5); % Lymphocytes 12.5 % (20.5-51.1); % Monocytes 6.1 % (1.7-9.3); % Neutrophils 77.8 % (42.2-75.2); Absolute Basophils 0.1 10^3/uL (0-0.2); Absolute Eosinophils 0.3 10^3/uL (0-0.7); Absolute Immature Granulocytes 0.1 10^3/uL (0-0.05); Absolute Lymphocytes 1.5 10^3/uL (1.2-3.4); Absolute Monocytes 0.7 10^3/uL (0.1-0.6); Absolute Neutrophils 9.3 10^3/uL (1.4-6.5); Hemoglobin 16.1 g/dL (12.0-16.0); Mean Corp Hgb Conc. 34.3 g/dL (33.0-37.0); Mean Corpuscular Hgb 30.3 pg (27.0-31.0); Mean Corpuscular Volume 88.3 fL (81.0-99.0); Mean Platelet Volume 10.8 fL (7.4-10.4); Nucleated Red Blood Cells % 0 %; Platelet Count 195 10^3/uL (130-400); Red Blood Cell Count 5.32 10^6/uL (4.20-5.40); Red Cell Dist. Width 13.2 % (11.5-14.5); White Blood Cell Count 11.9 10^3/uL (4.8-10.8)
[2024-05-07 10:30] LABS: ALT (SGPT) 19 U/L (0-35); AST (SGOT) 17 U/L (14-36); Alkaline Phosphatase 72 U/L (38-126); Blood Urea Nitrogen 13 mg/dl (7-17); Calcium 9.4 mg/dl (8.4-10.2); Carbon Dioxide 28 mmol/L (22-30); Chloride 106 mmol/L (98-107); Estimated Creatinine Clearance 105 ml/min; Glucose 127 mg/dl (70-99); Potassium 4.4 mmol/L (3.5-5.1); Sodium 142 mmol/L (135-145); Total Bilirubin 0.3 mg/dl (0.2-1.3); Total Protein 6.2 g/dl (6.3-8.2); eGFR > 60.00
--- NOTE | 2024-05-07 14:08 | HPS.HSE ---
Family Physician
-
Family Physician: Sancho Sage
Chief Complaint
-
Back pain
History of Present Illness
63-year-old woman who was here 2 days ago for back pain, and previous to that was seen at [facility] (in the [place]) after having a fall from a chair. CT scan of the lumbar spine did show subtle fracture right anterior superior aspect
of L2. 2 days ago she was discharged from on oxycodone, but continues to complains of pain. The pain has some mild radiation to the left hip. She is scheduled to see Dr. Bowles next week. Her daughter had concerns that her mom was seeking
narcotic pain medication. 2 days ago, she was evaluated by PT and was able to ambulate well with a walker. Patient felt comfortable going home and was placed on steroids. At home she was unable to ambulate without intolerable pain. She states
that the steroids are not enough to allow her to ambulate at this point. She states that she uses oxycodone as needed for chronic neck pain and migraine headaches.
Medical History
Past Medical History
Past Medical History: Reports Other
Additional Past Medical History:
LUIS ALFREDO (generalized anxiety disorder)
Primary osteoarthritis of left knee
Essential hypertension
Chronic migraine
Status post laparoscopic-assisted sigmoidectomy
Status post arthroscopy of right knee
Vitamin D deficiency
Smokes 11 to 20 cigarettes per day
NSVT (nonsustained ventricular tachycardia)
History of acute inferior wall [place]
Carotid atherosclerosis, bilateral
type 2 diabetes mellitus with other specified complication
Benzodiazepine dependence, continuous
Type 2 diabetes mellitus with diabetic peripheral angiopathy without gangrene
Coronary artery disease involving [place] coronary artery of [place] heart without angina pectoris
Mixed hyperlipidemia
Moderate episode of recurrent major depressive disorder
Atherosclerosis of aorta
Hyperlipidemia, unspecified
Morbid (severe) obesity due to excess calories
Past Surgical History: Reports Other
Additional Past Surgical History:
See above
Social History
Tobacco: Smoker
Alcohol: None
Drug: None
Living: Alone
Family History
Family History: Not pertinent
Allergies / Home Medications
Allergies reflects when Allergies were last updated in [employer].
Home Medications with original date entered in [facility]
Allergy/Medication List:
Allergies
Allergy/AdvReac Type Severity Reaction Status Date / Time
No Known Allergies Allergy Verified 05/07/24 08:43
Home Medications
desvenlafaxine succinate 50 mg tablet,extended release 24 hr (Pristiq) 50 mg PO DAILY Mental Health/Anxiety 10/23/16
diazepam 5 mg tablet 10 mg PO HS PRN sleep issues 10/23/16
aspirin 81 mg chewable tablet 81 mg PO DAILY 11/15/19
lisinopril 2.5 mg tablet 2.5 mg PO DAILY #90 tabs 11/15/19
metoprolol succinate 50 mg tablet,extended release 24 hr 50 mg PO DAILY #90 tabs 11/15/19
nitroglycerin 0.4 mg sublingual tablet 0.4 mg sublingual [id number] PRN chest pain #25 tabs 11/15/19
Medical Marijuana 5 mg PO DAILYPRN PRN migraines 02/12/23
atorvastatin 40 mg tablet 40 mg PO HS High Cholesterol 02/12/23
ibuprofen 200 mg tablet (Advil) 400 mg PO Q6H PRN headache 02/12/23
butorphanol 10 mg/mL nasal spray 1 spray intranasal Q4H PRN headache #2.5 mL 02/21/24
lidocaine 5 % topical patch 1 patch topical DAILY #15 ea 05/04/24
oxycodone 5 mg capsule 5 mg PO Q8H PRN Pain #10 caps 05/04/24
prednisone 10 mg tablet See Rx Instructions .Route .COMPLEX #30 tabs 05/06/24
Review of Systems
-
History Source: Patient
A 12 point ROS was completed and negative except as noted: Yes
Physical Exam
Vital Signs
Vital Signs
Temp Pulse Resp BP Pulse Ox
98.0 F 85 16 156/94 98
05/07/24 08:38 05/07/24 13:01 05/07/24 13:01 05/07/24 13:01 05/07/24 13:01
Physical Exam
General: Well Developed, Well Nourished, Pain and Obese
HEENT: NormoCephalic, Moist mucous membranes, [place] Conjunctivae, No Ptosis, Nose Appears Normal and Ears Appear Normal
Respiratory: Clear
Cardiac: S1/S2 and Regular Rhythm
GI: Soft, Non Tender and Non Distended
Musculoskeletal: No Clubbing, No Cyanosis and No Edema
Skin: Warm and Dry; No Rash
Neuro: Awake, Alert, Oriented and AO x 3
Psych: Calm
Laboratory Results
-
05/07/24 09:53
05/07/24 09:53
Laboratory Results
Total Bilirubin 0.3 mg/dl (0.2-1.3) 05/07/24 09:53
AST 17 U/L (14-36) 05/07/24 09:53
ALT 19 U/L (0-35) 05/07/24 09:53
Alkaline Phosphatase 72 U/L (38-126) 05/07/24 09:53
Data Reviewed
-
Lab Data: Labs Reviewed by me
Impression/Plan
-
IMPRESSION:
63 woman with fracture of spine and pain. Difficulty ambulation.
PLAN:
1. Pain on spine after fall and fracture. She takes oxycodone at home.
Pain control:
Ibuprofen 600 mg po Q8 standing (with food)
+
Tylenol 1,000 mg po Q8 standing
+
Usual already prescribed oxycodone as needed
+
Lidocaine patch over fracture area (L2)
+
PT consult
Continue home meds for BP control
Carb control diet
Do not give valium and oxycodone together
Code: DNR (she has capacity to make this choice)
VCD for DVTp
[2024-05-07] MEDS: ROXICODONE 5 MG PO ×3 (14:43→22:57)
[2024-05-07] MEDS: LIDOCAINE 4% PATCH 1 PATCH TOPICAL (16:37)
[2024-05-07] MEDS: MOTRIN 600 MG PO ×2 (16:37→23:00)
[2024-05-07] MEDS: TYLENOL 975 MG PO ×2 (16:38→23:00)
[2024-05-07] MEDS: PROTONIX 40 MG PO (16:38)
[2024-05-07] MEDS: COLACE 100 MG PO (20:53)
[2024-05-07] MEDS: SENOKOT 8.6 MG PO (20:53)
[2024-05-07] MEDS: LIPITOR 40 MG PO (20:53)
[2024-05-07] MEDS: DESENEX/MITRAZOL/ZEASORB 1 APPLIC TOPICAL (20:58)
[2024-05-08] MEDS: ROXICODONE 5 MG PO ×5 (06:23→23:35)
[2024-05-08 07:54] VITALS: BP 132/71
[2024-05-08 08:23] LABS: Blood Urea Nitrogen 18 mg/dl (7-17); Calcium 9.6 mg/dl (8.4-10.2); Carbon Dioxide 24 mmol/L (22-30); Chloride 105 mmol/L (98-107); Estimated Creatinine Clearance 104 ml/min; Glucose 148 mg/dl (70-99); Potassium 4.6 mmol/L (3.5-5.1); Sodium 140 mmol/L (135-145); eGFR > 60.00
[2024-05-08] MEDS: COLACE 100 MG PO (08:52)
[2024-05-08] MEDS: DESENEX/MITRAZOL/ZEASORB 1 APPLIC TOPICAL ×2 (08:52→20:01)
[2024-05-08] MEDS: LIDOCAINE 4% PATCH 1 PATCH TOPICAL (08:53)
[2024-05-08] MEDS: PROTONIX 40 MG PO (08:54)
[2024-05-08] MEDS: PRISTIQ 50 MG PO (08:54)
[2024-05-08] MEDS: LOW STRENGTH ASPIRIN 81 MG PO (08:54)
[2024-05-08] MEDS: MOTRIN 600 MG PO ×3 (08:54→23:34)
[2024-05-08] MEDS: SENOKOT 8.6 MG PO (08:55)
[2024-05-08] MEDS: TOPROL XL 50 MG PO (08:55)
[2024-05-08] MEDS: TYLENOL 975 MG PO ×3 (08:55→23:34)
[2024-05-08 10:35] LABS: Hematocrit 44.5 % (37.0-47.0); Hemoglobin 15.7 g/dL (12.0-16.0); Mean Corp Hgb Conc. 35.3 g/dL (33.0-37.0); Mean Corpuscular Hgb 31.3 pg (27.0-31.0); Mean Corpuscular Volume 88.8 fL (81.0-99.0); Mean Platelet Volume 11.3 fL (7.4-10.4); Platelet Count 203 10^3/uL (130-400); Red Blood Cell Count 5.01 10^6/uL (4.20-5.40); Red Cell Dist. Width 12.8 % (11.5-14.5); White Blood Cell Count 19.6 10^3/uL (4.8-10.8)
--- NOTE | 2024-05-08 11:59 | W.PN.HOSP.TC ---
Today's Communication/Plan
-
Continue standing pain regimen
Oxycodone as needed
PT/OT
Monitor for fevers
Assessment / Plan
Assessment / Plan
#Intractable lower back pain
#Recent L2 fracture
-Status post recent fall, cared for at [facility], CT showed subtle fracture of right anterior aspect of L2
-Was recently discharged on oxycodone, evaluated by PT but went home on steroids
-Returned with inability to ambulate due to intolerable pain
-Question opioid seeking behavior, concerns were raised by her daughter
-Was started on standing dose ibuprofen and Tylenol, as needed oxycodone, lidocaine patch
-Ordered one-time dose of morphine now at patient request for severe pain, will hold off on further doses
-PT/OT to assess patient
#Leukocytosis
-Was discharged recently on steroid course for low back pain
-No current fevers or other infectious symptoms
-Suspect this is all demargination, will continue to trend CBC
#ASCVD
-History of CAD s/p CABG as well as peripheral arterial disease
-Likely related to her metabolic status, history of diabetes, dyslipidemia and hypertension
-Home medication includes high intensity statin, aspirin; beta-ronan and ACEi for CAD
-No signs of ACS or worsening PAD/CLI on this admission
#H/O NSVT
-Will continue to monitor on telemetry
-No known history of systolic dysfunction
#T2DM
-Last hemoglobin A1c on record was 7.2%; no known microvascular complication
-Suspect that it is contributing to her ASCVD history
-Home meds do not show any medications
-Starting ISS with Accu-Cheks, consider metformin at DC
DVT prophylaxis: SCDs
Diet: Carb controlled
CODE STATUS: DNR
Anticipated Discharge: Within 24 hours
Subjective/Interval History
-
Date of Service: May 08, 2024
Seen and examined at the bedside. No acute events overnight. AFVSS this morning.
Labs positive for leukocytosis, WBC 19.8. No fevers or other infectious symptoms at this time. Previous labs do show fairly persistent elevation in WBC count.
She complains of lower back pain, 03/12 at the time of my evaluation. States that the medicine she is receiving are not really helping. Added IV morphine as needed for breakthrough severe pain.
Otherwise denies fevers or chills, chest pain, shortness of breath, GI issues, urinary issues, paresthesias or weakness, bleeding or bruising.
Objective Data
-
Labs:
Laboratory Results
05/08/24
07:47
WBC 19.6 H
Hgb 15.7
Hct 44.5
Plt Count 203
Sodium 140
Potassium 4.6
Chloride 105
Carbon Dioxide 24
BUN 18 H
Creatinine 0.5 L
Glucose 148 H
Calcium 9.6
Vital Signs:
Vital Signs
Temp Pulse Resp BP Pulse Ox
98.1 F 79 16 132/71 93
05/08/24 07:54 05/08/24 07:54 05/08/24 07:54 05/08/24 07:54 05/08/24 07:54
I&O
05/07/24 05/08/24 05/09/24
06:59 06:59 06:59
Intake Total 920 / 920
Output Total 300 / 300
Balance 620 / 620
Review of Systems
-
History Source: Patient
All other systems: Reviewed and negative
Physical Exam
-
General: No Apparent Distress, Pain and Obese
HEENT: Normocephalic, Atraumatic and Moist Mucous Membranes
Respiratory: Clear to Auscultation and Non Labored Respirations
Cardiac: Regular Rhythm and S1/S2; Negative Murmur, Rub or Gallop
GI: Soft, Nontender, Nondistended and Normal Bowel Sounds
Musculoskeletal: No Clubbing, No Cyanosis, No Edema and Other (No significant tenderness to palpation of the lumbar spine)
Skin: Warm and Dry; Negative Rash
Neuro: AO x 3, Nonfocal/Grossly Intact and Central Nerve's Intact
Psych: Calm
Data Reviewed
-
Labs: Labs Reviewed by me and Discussed with Patient
[2024-05-08] MEDS: VALIUM 10 MG PO (12:36)
[2024-05-08 13:10] VITALS: BP 144/85; PULSE 73; O2SAT 96
--- NOTE | 2024-05-08 15:36 | CM ---
CM met with patient who [place] 2 [place], [place] and [place] she lives in an apartment above the main house (where her lives). Amicable divorce in process; pt hoping she may be able to stay in the main house with 2 entry
steps until she is feeling better.
Pt was evaluated by PT with recommendation for outpatient therapy upon discharge.
[2024-05-08 15:43] LABS: Glucose - Point of Care 222 mg/dl (70-99)
[2024-05-08 15:57] VITALS: BP 136/76
[2024-05-08] MEDS: NOVOLOG FLEXPEN-MODERATE RESISTANCE 3 UNITS SC (17:25)
[2024-05-08] MEDS: COLACE PO (20:11)
[2024-05-08] MEDS: SENOKOT PO (20:11)
[2024-05-08] MEDS: LIPITOR 40 MG PO (21:36)
[2024-05-08 21:41] LABS: Glucose - Point of Care 145 mg/dl (70-99)
[2024-05-08 23:03] VITALS: BP 133/83
[2024-05-09] MEDS: ROXICODONE 5 MG PO ×4 (03:10→20:26)
[2024-05-09 07:50] LABS: Glucose - Point of Care 118 mg/dl (70-99)
[2024-05-09] MEDS: NOVOLOG FLEXPEN-MODERATE RESISTANCE SC ×2 (07:50→11:58)
--- NOTE | 2024-05-09 07:55 | W.PN.HOSP.TC ---
Addendum entered and electronically signed by Carrie Mccullough MD 05/09/24 19:08:
I saw and evaluated the patient independently. I reviewed the resident�s note and agree with findings and plan as documented by Dr. Sánchez.
GENERAL: well developed, well nourished, female in no apparent distress--able to sit up in bed of her own accord without assistance
HEENT: NC/AT--no O2 requirements
HEART: regular rate and rhythm, +S1, +S2
LUNGS : clear to auscultation bilaterally
ABDOM: soft, nontender, nondistended, + bowel sounds
EXT: no cyanosis, clubbing, or edema
NEUROLOGIC: grossly intact
Intractable lower back pain--Recent L2 fracture due to mechanical fall (fell off a chair)--Was discharged from there on oxycodone, evaluated by PT but went home on steroids--Returned to ED with inability to ambulate due to intolerable pain
(Questions of opioid seeking behavior concerns were raised by her daughter)--d/c IV morphine--change to OTC tylenol/motrin alternating--cont lidoderm patch--abdominal binder--pt has appointment with Dr. Bowles this , encouraged to keep
appointment--PT/OT
Leukocytosis--likely due to steroids--no concern for infection
ASCVD--History of CAD s/p CABG as well as peripheral arterial disease--cont meds as able
H/O NSVT--no events
Type 2 DM -Home meds do not show any medications for diabetes--Starting ISS with Accu-Cheks, consider metformin at DC
DVT prophylaxis: SCDs
CODE STATUS: DNR
Original Note:
Today's Communication/Plan
-
.
Assessment / Plan
Assessment / Plan
Assessment
Intractable lower back pain s/p recent fall
Fracture right anterior aspect of L2
Leukocytosis
Conditions present prior to admission
CAD s/p CABG
PAD
History of NSVT
T2DM
Plan
#Intractable lower back pain
#Recent L2 fracture
-Status post recent fall, cared for at [facility], CT showed subtle fracture of right anterior aspect of L2
-Was discharged from there on oxycodone, evaluated by PT but went home on steroids
-Returned to ED with inability to ambulate due to intolerable pain
-Question opioid seeking behavior, concerns were raised by her daughter
-Was started on standing dose ibuprofen and Tylenol, as needed oxycodone, lidocaine patch
-At this time we will do standing Tylenol, standing Motrin, oxycodone as needed, tramadol every 6 and lidocaine patch
-Will hold off on morphine at this time
-PT/OT to assess patient
-Patient is scheduled to see Dr. Bowles on
#Leukocytosis
-Was discharged recently on steroid course for low back pain
-No current fevers or other infectious symptoms
-Suspect this is all demargination, will continue to trend CBC
-WBC trending down
#ASCVD
-History of CAD s/p CABG as well as peripheral arterial disease
-Likely related to her metabolic status, history of diabetes, dyslipidemia and hypertension
-Home medication includes high intensity statin, aspirin; beta-ronan and ACEi for CAD
-No signs of ACS or worsening PAD/CLI on this admission
#H/O NSVT
-Will continue to monitor on telemetry
-No known history of systolic dysfunction
#T2DM
-Last hemoglobin A1c on record was 7.2%; no known microvascular complication
-Home meds do not show any medications for diabetes
-Starting ISS with Accu-Cheks, consider metformin at DC
DVT prophylaxis: SCDs
Diet: Carb controlled
CODE STATUS: DNR
Anticipated Discharge: 24 - 48 hours
Subjective/Interval History
-
Patient seen and examined at bedside. Patient with complaints of back pain she reports pain is 8 out of 10. She reports oral pain medications do not help. She will preferred IV morphine at this time.
Patient able to sit up during physical examination without assistance.
Objective Data
-
Labs:
Laboratory Results
05/09/24
06:00
WBC Pending
Hgb Pending
Hct Pending
Plt Count Pending
Vital Signs:
Vital Signs
Temp Pulse Resp BP Pulse Ox
98.0 F 68 18 133/83 93
05/08/24 23:03 05/08/24 23:03 05/08/24 23:03 05/08/24 23:03 05/08/24 23:03
I&O
05/08/24 05/09/24 05/10/24
06:59 06:59 06:59
Intake Total 920 / 920 1200 / 1200
Output Total 300 / 300
Balance 620 / 620 1200 / 1200
Review of Systems
-
All other systems: Reviewed and negative (Except as documented)
Physical Exam
-
General: No Apparent Distress
Respiratory: Clear to Auscultation
Cardiac: Regular Rhythm and S1/S2
GI: Soft, Nontender, Nondistended and Normal Bowel Sounds
Musculoskeletal: No Edema and Other (No tenderness to palpation of spine and lumbar area)
Skin: Warm and Dry
Neuro: AO x 3
Psych: Calm
[2024-05-09 07:58] VITALS: BP 140/90
[2024-05-09] MEDS: MOTRIN 600 MG PO ×3 (08:23→23:11)
[2024-05-09] MEDS: TOPROL XL 50 MG PO (08:23)
[2024-05-09] MEDS: TYLENOL 975 MG PO (08:23)
[2024-05-09] MEDS: PROTONIX 40 MG PO (08:23)
[2024-05-09] MEDS: LOW STRENGTH ASPIRIN 81 MG PO (08:24)
[2024-05-09] MEDS: PRISTIQ 50 MG PO (08:24)
[2024-05-09] MEDS: LIDOCAINE 4% PATCH 1 PATCH TOPICAL (08:24)
[2024-05-09] MEDS: COLACE PO (08:26)
[2024-05-09] MEDS: DESENEX/MITRAZOL/ZEASORB 1 APPLIC TOPICAL ×2 (08:26→20:19)
[2024-05-09] MEDS: SENOKOT PO (08:26)
[2024-05-09 09:42] LABS: Hematocrit 48.9 % (37.0-47.0); Hemoglobin 16.6 g/dL (12.0-16.0); Mean Corp Hgb Conc. 33.9 g/dL (33.0-37.0); Mean Corpuscular Hgb 30.9 pg (27.0-31.0); Mean Corpuscular Volume 91.1 fL (81.0-99.0); Mean Platelet Volume 11.3 fL (7.4-10.4); Platelet Count 207 10^3/uL (130-400); Red Blood Cell Count 5.37 10^6/uL (4.20-5.40); Red Cell Dist. Width 13.6 % (11.5-14.5); White Blood Cell Count 12.8 10^3/uL (4.8-10.8)
[2024-05-09 10:07] LABS: % Basophils 0.8 % (0-2); % Eosinophils 1.3 % (0-6); % Immature Granulocytes 0.8 % (0-0.5); % Lymphocytes 35.6 % (20.5-51.1); % Monocytes 5.6 % (1.7-9.3); % Neutrophils 55.9 % (42.2-75.2); Absolute Basophils 0.1 10^3/uL (0-0.2); Absolute Eosinophils 0.2 10^3/uL (0-0.7); Absolute Immature Granulocytes 0.1 10^3/uL (0-0.05); Absolute Lymphocytes 4.5 10^3/uL (1.2-3.4); Absolute Monocytes 0.7 10^3/uL (0.1-0.6); Absolute Neutrophils 7.1 10^3/uL (1.4-6.5); Nucleated Red Blood Cells % 0 %
[2024-05-09 11:58] LABS: Glucose - Point of Care 97 mg/dl (70-99)
[2024-05-09] MEDS: ULTRAM 50 MG PO ×3 (12:41→23:11)
--- NOTE | 2024-05-09 13:17 | CM ---
Patient seen at bedside with physician and resident. Patient OBS and form provided today. Patient to review and complete. Patient plan is home with outpatient needs. Patient family is supportive and patient does not anticipate other discharge
planning needs at this time.
Plan; home with no needs vs outpatient therapy.
[2024-05-09 15:18] VITALS: BP 124/72
[2024-05-09] MEDS: TYLENOL 650 MG PO ×3 (16:05→23:11)
[2024-05-09 17:24] LABS: Glucose - Point of Care 191 mg/dl (70-99)
[2024-05-09] MEDS: NOVOLOG FLEXPEN-MODERATE RESISTANCE 1 UNITS SC (17:41)
[2024-05-09] MEDS: COLACE 100 MG PO (20:19)
[2024-05-09] MEDS: SENOKOT 8.6 MG PO (20:19)
[2024-05-09 21:01] LABS: Glucose - Point of Care 168 mg/dl (70-99)
[2024-05-09] MEDS: LIPITOR 40 MG PO (23:11)
[2024-05-09 23:24] VITALS: BP 134/83
[2024-05-10] MEDS: TYLENOL PO (04:57)
[2024-05-10] MEDS: ULTRAM 50 MG PO ×2 (05:53→12:17)
[2024-05-10 07:44] VITALS: BP 144/89
[2024-05-10 07:53] LABS: Glucose - Point of Care 109 mg/dl (70-99)
[2024-05-10] MEDS: TOPROL XL 50 MG PO (07:53)
[2024-05-10] MEDS: TYLENOL 650 MG PO ×2 (07:53→12:18)
[2024-05-10] MEDS: MOTRIN 600 MG PO (07:53)
[2024-05-10] MEDS: LIDOCAINE 4% PATCH 1 PATCH TOPICAL (07:53)
[2024-05-10] MEDS: SENOKOT 8.6 MG PO (07:54)
[2024-05-10] MEDS: LOW STRENGTH ASPIRIN 81 MG PO (07:54)
[2024-05-10] MEDS: COLACE 100 MG PO (07:54)
[2024-05-10] MEDS: PROTONIX 40 MG PO (07:54)
[2024-05-10] MEDS: PRISTIQ 50 MG PO (07:54)
[2024-05-10] MEDS: DESENEX/MITRAZOL/ZEASORB 1 APPLIC TOPICAL (07:55)
[2024-05-10] MEDS: ROXICODONE 5 MG PO ×2 (08:07→12:17)
[2024-05-10] MEDS: NOVOLOG FLEXPEN-MODERATE RESISTANCE SC (08:22)
[2024-05-10 09:51] LABS: Hematocrit 46.6 % (37.0-47.0); Mean Corp Hgb Conc. 34.3 g/dL (33.0-37.0); Mean Corpuscular Hgb 30.1 pg (27.0-31.0); Mean Corpuscular Volume 87.8 fL (81.0-99.0); Platelet Count 207 10^3/uL (130-400); Red Blood Cell Count 5.31 10^6/uL (4.20-5.40); Red Cell Dist. Width 13.3 % (11.5-14.5); White Blood Cell Count 10.1 10^3/uL (4.8-10.8)
[2024-05-10 11:09] LABS: Glucose - Point of Care 188 mg/dl (70-99)
[2024-05-10 11:13] LABS: Blood Urea Nitrogen 20 mg/dl (7-17); Calcium 9.2 mg/dl (8.4-10.2); Carbon Dioxide 26 mmol/L (22-30); Chloride 102 mmol/L (98-107); Estimated Creatinine Clearance 89 ml/min; Glucose 103 mg/dl (70-99); Potassium 4.4 mmol/L (3.5-5.1); Sodium 140 mmol/L (135-145); eGFR > 60.00
[2024-05-10] MEDS: NOVOLOG FLEXPEN-MODERATE RESISTANCE 1 UNITS SC (12:18)
--- NOTE | 2024-05-10 13:17 | CM ---
Patient seen at bedside with physician and resident. Patient completed OBS form and signed form placed in chart. Patient family to transport patient home. CM will continue to follow for discharge planning needs.
Plan; home with no needs at this time.
--- NOTE | 2024-05-10 14:12 | W.PN.HOSP.TC ---
Addendum entered and electronically signed by Carrie Mccullough MD 05/10/24 14:31:
I saw and evaluated the patient independently. I reviewed the resident�s note and agree with findings and plan as documented by Dr. Sánchez.
GENERAL: well developed, well nourished, female in no apparent distress
HEENT: NC/AT--no O2 requirements
HEART: regular rate and rhythm, +S1, +S2
LUNGS : clear to auscultation bilaterally
ABDOM: soft, nontender, nondistended, + bowel sounds
EXT: no cyanosis, clubbing, or edema
NEUROLOGIC: grossly intact
Intractable lower back pain--Recent L2 fracture due to mechanical fall (fell off a chair)--Was discharged from there on oxycodone, evaluated by PT but went home on steroids--Returned to ED with inability to ambulate due to intolerable pain
(Questions of opioid seeking behavior concerns were raised by her daughter)--d/c IV morphine--change to OTC tylenol/motrin alternating--cont lidoderm patch--abdominal binder--pt has appointment with Dr. Bowles this , encouraged to keep
appointment--PT/OT
Leukocytosis--likely due to steroids--no concern for infection
ASCVD--History of CAD s/p CABG as well as peripheral arterial disease--cont meds as able
H/O NSVT--no events
Type 2 DM -Home meds do not show any medications for diabetes--Starting ISS with Accu-Cheks, consider metformin at DC
DVT prophylaxis: SCDs
CODE STATUS: DNR
OK for d/c
Original Note:
Today's Communication/Plan
-
DC home today with tramadol, oxycodone, ibuprofen, acetaminophen, lidocaine patch regimen
Follow-up with Dr. Bowles tomorrow
New med metformin 500 mg twice daily
Assessment / Plan
Assessment / Plan
Assessment
Intractable lower back pain s/p recent fall
Fracture right anterior aspect of L2
Leukocytosis
Conditions present prior to admission
CAD s/p CABG
PAD
History of NSVT
T2DM
Plan
#Intractable lower back pain
#Recent L2 fracture
-Status post recent fall, cared for at [facility], CT showed subtle fracture of right anterior aspect of L2
-Was discharged from there on oxycodone, evaluated by PT but went home on steroids
-Returned to ED with inability to ambulate due to intolerable pain
-Question opioid seeking behavior, concerns were raised by her daughter
-Was started on standing dose ibuprofen and Tylenol, as needed oxycodone, lidocaine patch
-At this time we will do standing Tylenol, standing Motrin, oxycodone as needed, tramadol every 6 and lidocaine patch. Will DC home on this regimen
-Will hold off on morphine at this time
-Patient is scheduled to see Dr. Bowles on .
#Leukocytosis
Resolved
#ASCVD
-History of CAD s/p CABG as well as peripheral arterial disease
-Likely related to her metabolic status, history of diabetes, dyslipidemia and hypertension
-Home medication includes high intensity statin, aspirin; beta-ronan and ACEi for CAD
-No signs of ACS or worsening PAD/CLI on this admission
#H/O NSVT
-Will continue to monitor on telemetry
-No known history of systolic dysfunction
#T2DM
-Last hemoglobin A1c on record was 7.2%; no known microvascular complication
-Home meds do not show any medications for diabetes
-Starting ISS with Accu-Cheks, consider metformin at DC
DVT prophylaxis: SCDs
Diet: Carb controlled
CODE STATUS: DNR
Anticipated Discharge: Today
Subjective/Interval History
-
Patient seen and examined at bedside today. Patient with no acute complaints. Afebrile with normal vital signs
Objective Data
-
Labs:
Laboratory Results
10/08/24 10/08/24
06:41 09:09
WBC 10.1
Hgb 16.0
Hct 46.6
Plt Count 207
Sodium Cancelled 140
Potassium Cancelled 4.4
Chloride Cancelled 102
Carbon Dioxide Cancelled 26
BUN Cancelled 20 H
Creatinine Cancelled 0.7
Glucose Cancelled 103 H
Calcium Cancelled 9.2
Vital Signs:
Vital Signs
Temp Pulse Resp BP Pulse Ox
97.6 F 68 19 144/89 96
05/10/24 07:44 05/10/24 07:44 05/10/24 07:44 05/10/24 07:44 05/10/24 08:00
I&O
05/09/24 05/10/24 05/11/24
06:59 06:59 06:59
Intake Total 1200 / 1200 2280 / 2280
Balance 1200 / 1200 2280 / 2280
Review of Systems
-
All other systems: Reviewed and negative (Except as documented)
Physical Exam
-
General: No Apparent Distress
Respiratory: Clear to Auscultation
Cardiac: Regular Rhythm and S1/S2
GI: Soft, Nontender, Nondistended and Normal Bowel Sounds
[2024-05-10 15:21] VITALS: BP 124/74
--- NOTE | 2024-05-10 19:01 | W.DCSUMMARY ---
Addendum entered and electronically signed by Carrie Mccullough MD 05/11/24 07:23:
Read, reviewed, and agree. See same day progress note for additional details. Time spent coordinating care, DC planning, review of DC plan of care with resident, transition of care, review of records in EMR, med rec, consults, notes, d/w
consultants, nursing, family, and CM = 38 minutes.
Original Note:
Discharge Summary
Discharge Data
Date of Admission: 05/07/24
Date of Discharge: 05/10/24
-
Pending Results: No
Hospital Course
Discharging Physicians : Dagoberto Sánchez MD, Carrie Mccullough MD
Primary care physician : Sancho Hamilton DO
Principal Discharge diagnosis : Intractable Lower Back pain secondary to Recent L2 Fracture s/p mechanical fall
Chronic Discharge diagnosis : Type II diabetes mellitus
Hospital Course : This is a 63-year-old woman who presented to ED for back pain. She was previously seen at [facility] after falling off from a chair. CT scan of the lumbar spine showed subtle fracture right anterior superior aspect of
L2. She was discharged from the hospital oxycodone and prednisone taper, then presented to ED for similar complaints of back pain. There were concerns for opioid seeking behavior raised by her daughter. Patient was admitted and kept on
observation. She was started on standing dose of ibuprofen, Tylenol, as needed oxycodone, lidocaine patch. In addition, a one-time dose of morphine was given at the patient request for severe pain. On the second day, she continued to complain of
pain and Oral tramadol was substituted for IV morphine. She reports pain improved with current regimen of [id number] ibuprofen, Tylenol, lidocaine patch, as needed oxycodone, tramadol. She will be discharged home on this regimen with plans to
follow-up with Dr. Bowles orthopedics on as she had this appointment already scheduled before presenting to the ED.
Problem 2: Type 2 diabetes mellitus; while in the ER, records showed that her last hemoglobin A1c was 7.2% with no known macrovascular complication. She was not on any on medication regimen. She was started on ISS with Accu-Cheks while in-house.
She will be discharged home on metformin 500 mg twice daily, to follow with her PCP for medication adjustments
Total Time Preparing Discharge 38 minutes including examination of the patient, summary of the hospital stay, instructions for continuing care to all relevant caregivers; and preparation of discharge records, prescriptions, and referral forms if
necessary.
Discharge Plan
-
Patient Disposition: Home (Routine Discharge)
Discharge Diagnosis/Procedures: Intractable lower back pain
Recent L2 fracture due to mechanical fall
Type 2 diabetes mellitus
Condition: Fair
Diet: Diabetic, Carb Controlled
Activity: As tolerated
Driving Restrictions: Not until seen by your Dr
Referrals:
Pedro Bowles DO [Non-Admitting Privileges] - in less than 1 week
Sancho Sage DO [Family Provider] - in less than 1 week
Prescriptions:
New
miconazole nitrate [Miconazorb AF] 2 % Powder
1 applic topical BID Qty: 85 0RF
docusate sodium 100 mg Capsule
100 mg PO BID Qty: 0 0RF
lidocaine 4 % Adhesive Patch,Medicated
1 patch topical DAILY Qty: 0 0RF
pantoprazole 40 mg Tablet,Delayed Release (Dr/Ec)
40 mg PO DAILY Qty: 30 0RF
ibuprofen 600 mg Tablet
600 mg PO Q8H Qty: 0 0RF
oxycodone 5 mg Tablet
5 mg PO Q4HPRN PRN (Reason: severe pain) Qty: 14 0RF
sennosides [Senna Laxative] 8.6 mg Tablet
8.6 mg PO BID Qty: 0 0RF
acetaminophen 325 mg Tablet
650 mg PO Q4 Qty: 0 0RF
tramadol 50 mg Tablet
50 mg PO Q6HPRN PRN (Reason: moderate pain) Qty: 14 0RF
metformin 500 mg tablet
500 mg PO BID Qty: 30 0RF
Continued
diazepam 5 MG tablet
10 mg PO HS PRN (Reason: sleep issues)
desvenlafaxine succinate [Pristiq] 50 MG tablet extended release 24 hr
50 mg PO DAILY
aspirin 81 MG tablet,chewable
81 mg PO DAILY 0RF
metoprolol succinate 50 MG tablet extended release 24 hr
50 mg PO DAILY Qty: 90 3RF
nitroglycerin 0.4 MG tablet, sublingual
0.4 mg sublingual [id number] PRN (Reason: chest pain) Qty: 25 2RF
atorvastatin 40 MG tablet
40 mg PO HS
lisinopril 2.5 MG tablet
2.5 mg PO DAILY
Discontinued
ibuprofen [Advil] 200 mg Tablet
400 mg PO Q6H PRN (Reason: headache)
Discharge Orders:
Discharge Patient (As Directed); Ordered 05/10/24
Ordered By: Dagoberto Sánchez
Discharge Date and Time
Discharge Date/Time: 05/10/24 16:47
Print Language: VINCENTIAN
== END 2024-05-10 16:47 | disposition home or self-care (01) ==
LOC: 4 WEST ACU 14:58
PROVIDERS: Internal Medicine; Nurse Practitioner; Student in an Organized Health Care Education/Training Program; ADMITTING PHYSICIAN Internal Medicine; ATTENDING PHYSICIAN Internal Medicine; EMERGENCY PHYSICIAN Emergency Medicine; FAMILY PHYSICIAN Family Medicine
DX: S32.029A Unspecified fracture of second lumbar vertebra, initial encounter for closed fracture (principal); M54.9 Dorsalgia, unspecified; M25.552 Pain in left hip; W07.XXXA Fall from chair, initial encounter; Y93.9 Activity, unspecified; Y92.009 Unspecified place in unspecified non-institutional (private) residence as the place of occurrence of the external cause; F17.200 Nicotine dependence, unspecified, uncomplicated; I25.10 Atherosclerotic heart disease of native coronary artery without angina pectoris; F41.9 Anxiety disorder, unspecified; E55.9 Vitamin D deficiency, unspecified; G43.909 Migraine, unspecified, not intractable, without status migrainosus; F33.9 Major depressive disorder, recurrent, unspecified; I70.0 Atherosclerosis of aorta; E78.2 Mixed hyperlipidemia; E11.51 Type 2 diabetes mellitus with diabetic peripheral angiopathy without gangrene; F13.20 Sedative, hypnotic or anxiolytic dependence, uncomplicated; E78.00 Pure hypercholesterolemia, unspecified; F12.90 Cannabis use, unspecified, uncomplicated; F41.1 Generalized anxiety disorder; M17.12 Unilateral primary osteoarthritis, left knee; I25.2 Old myocardial infarction; R26.2 Difficulty in walking, not elsewhere classified; D72.829 Elevated white blood cell count, unspecified; T38.0X5A Adverse effect of glucocorticoids and synthetic analogues, initial encounter; Y92.9 Unspecified place or not applicable; E66.01 Morbid (severe) obesity due to excess calories; I10 Essential (primary) hypertension; E03.9 Hypothyroidism, unspecified; Z95.5 Presence of coronary angioplasty implant and graft; Z90.710 Acquired absence of both cervix and uterus; Z79.82 Long term (current) use of aspirin; Z79.52 Long term (current) use of systemic steroids; Z68.38 Body mass index [BMI] 38.0-38.9, adult; Z86.79 Personal history of other diseases of the circulatory system; Z66 Do not resuscitate; Z95.1 Presence of aortocoronary bypass graft; Z60.2 Problems related to living alone
CPT/HCPCS: 80048; 80053; 82962; 85025; 85027; 96374; 96375; 97162; 99284; 99406; G0378

== ENCOUNTER → 2024-05-31 07:24 | Outpatient (REF) | payer BC, SELFPAY | LOC: HWRAD 07:24 | PROVIDERS: ATTENDING PHYSICIAN Psychiatry & Neurology Neurology; FAMILY PHYSICIAN Family Medicine | DX: S32.020S Wedge compression fracture of second lumbar vertebra, sequela (principal); M54.16 Radiculopathy, lumbar region | CPT/HCPCS: 72131 ==

== ENCOUNTER 2025-02-02 09:26 | Emergency (ER) | payer BC, SELFPAY ==
[2025-02-02] VITALS (8 sets, daily range): BP systolic 92–153; BP diastolic 68–110; BMI 34.8
--- NOTE | 2025-02-02 10:35 | EDRN ---
Lauren CONDON in room w/ pt.
--- NOTE | 2025-02-02 10:45 | ED.GENMED ---
History of Present Illness
General
Chief Complaint: Back Pain
Source: patient
Exam Limitations: none
Time Seen by Provider: 02/02/25 10:19
Nursing documentation reviewed up to this point in time: agreed with
History of Present Illness
History of Present Illness:
64 y/o F with h/o HTN, HLD, chronic migraines, has opiates
here with L sided lumbar pain that radiates around her L hip and into thigh at times since a fall a few days ago
pt says there was coffee spilled ont he floor and she fell, tried to grab onto the counter but it was too late, fell onto her back
no head strike
no thinners
says she was able to get up but has had pain waxing and waning, not relieved with doses of oxycodone which she has left over from migraine treatment
she occasionally feels the pain wrap around her flank/hip and into thigh with some numbness; she has not had incontinence, perineal anesthesia, fever, chills
she is able to walk but with a lot of pain
has previous fracture of her lumbar spine L2 from a fall in 2023
there is a discharge summary makign not of opiate dependency being a concern
no hematuria, fever, chills
Past History
Past History
ED Past Medical History: CAD (RCA stent 11/2019), HTN, Hypercholesterolemia, Hypothyroidism (Anxiety) and Other (Migraines ,diverticulitis, Cellulitis, Ileitis)
ED Past Surgical History: Bowel resection (with ileostomy reversal), Cardiac (RCA stent 11/2019), Gynecological (Total Hysterectomy) and Orthopedic
Patient has exhibited threatening behavior?: No
Social History
Tobacco: Smoker
Alcohol: None
Drug: Marijuana
Personal:
Living: with family
Employment: Employed
Family History
Family History: Other (She has a father with migraine headaches)
Review of Systems
Review of Systems
Allergies reviewed?: Yes
All Other Systems: Not applicable
Phy Exam
Physical Exam
Physical Exam:
GENERAL: Alert , in no apparent distress
HEAD: NCAT
NECK: no midline tenderness, active ROM intact, no paraspinal muscle tenderness;
CARDIAC: Regular rate and rhythm, no edema
LUNGS: Clear breath sounds bilaterally, no acute respiratory distress, no wheezes/rales/rhonchi
ABDOMEN: Soft, without focal tenderness, no r/g, no cvat
bacjk: tender L lumbar paraspinal muscles, L si joint tenderness
neg straight leg raise
NEUROLOGICAL: Alert and oriented, no focal neuro deficits, CN intact, 5/5 strength, sensation intact
SKIN: Warm and dry,
MUSCULOSKELETAL: no hip tenderness, no inguinal tenderness
L hip pain with internal and external rotation
PSYCH: Normal and appropriate interaction.
Course
Orders/Labs/Results
Orders:
Orders
02/02/25 10:39
HYDROmorphone [Dilaudid] 1 mg IV NOW STA
Ketorolac [Toradol] 15 mg IV NOW STA
Hip, Left 2-3 Views [CR Hip - LT w/wo Pel 2-3 Vw*] Urgent
Comment:
Reason For Exam: L hip pain after fall
Include a pelvis x-ray?: Yes
Lumbar Spine Complete, 4 View [CR Lumbar Spine Comp Min 4 Vw*] Urgent
Comment:
Reason For Exam: low back pain after fall
02/02/25 10:54
Urinalysis Reflex To Culture Urgent
Date Specimen was Collected: 02/02/25
Time Specimen was Collected: 10:52
Urine Microscopic Reflex Cult Urgent
Urine Culture Urgent
JASON Source: U
Specimen Description:
Date Specimen was Collected: 02/02/25
Time Specimen was Collected: 10:52
02/02/25 11:19
Complete Blood Count/With Diff Urgent
Comprehensive Metabolic Panel Urgent
Abnormal Lab Results
02/02/25
10:54
Ur Occult Blood Reflex 1+ A
(Negative)
Leukocyte Esterase Rfl 1+ A
(Negative)
Urine Albumin (Reflex) 1+ A
(Neg - Trace)
Vital Signs
Initial and Last Documented VS:
Initial Vital Signs
Temp Pulse Resp BP Pulse Ox
36.7 C 107 20 153/110 94
02/02/25 09:28 02/02/25 09:28 02/02/25 09:28 02/02/25 09:28 02/02/25 09:28
Last Documented Vital Signs
Temp Pulse Resp BP Pulse Ox
36.7 C 92 16 108/77 97
02/02/25 09:28 02/02/25 10:36 02/02/25 10:36 02/02/25 10:36 02/02/25 10:48
*Pulse Oximetry
SaO2: 97
Oxygen Mode of Delivery: Room air
ED Attending Note
-
Portions of this chart may have been created with voice recognition software.� Occasional wrong word or��sound alike� substitutions may have occurred due to the inherent limitations of voice recognition software.
Discharge Plan
Departure
Prescriptions:
No Action
diazepam 5 MG tablet
10 mg PO HS PRN (Reason: sleep issues)
desvenlafaxine succinate [Pristiq] 50 MG tablet extended release 24 hr
50 mg PO DAILY
aspirin 81 MG tablet,chewable
81 mg PO DAILY 0RF
metoprolol succinate 50 MG tablet extended release 24 hr
50 mg PO DAILY Qty: 90 3RF
nitroglycerin 0.4 MG tablet, sublingual
0.4 mg sublingual [id number] PRN (Reason: chest pain) Qty: 25 2RF
atorvastatin 40 MG tablet
40 mg PO HS
lisinopril 2.5 MG tablet
2.5 mg PO DAILY
miconazole nitrate [Miconazorb AF] 2 % Powder
1 applic topical BID Qty: 85 0RF
docusate sodium 100 mg Capsule
100 mg PO BID Qty: 0 0RF
lidocaine 4 % Adhesive Patch,Medicated
1 patch topical DAILY Qty: 0 0RF
pantoprazole 40 mg Tablet,Delayed Release (Dr/Ec)
40 mg PO DAILY Qty: 30 0RF
ibuprofen 600 mg Tablet
600 mg PO Q8H Qty: 0 0RF
oxycodone 5 mg Tablet
5 mg PO Q4HPRN PRN (Reason: severe pain) Qty: 14 0RF
sennosides [Senna Laxative] 8.6 mg Tablet
8.6 mg PO BID Qty: 0 0RF
acetaminophen 325 mg Tablet
650 mg PO Q4 Qty: 0 0RF
tramadol 50 mg Tablet
50 mg PO Q6HPRN PRN (Reason: moderate pain) Qty: 14 0RF
metformin 500 mg tablet
500 mg PO BID Qty: 30 0RF
Referrals:
Sancho Sage DO [Family Provider, Family Practice]
Interventions
Interventions:
*Risk Screen - Suicide Last Done: 02/02/25 10:36
*General Assessment Last Done: 02/02/25 10:36
*ED- Fall Risk Assessment Last Done: 02/02/25 10:36
*ED COVID-19 Vaccine History Last Done: 02/02/25 10:36
ED-Musculoskeletal Assessment Last Done: 02/02/25 10:36
Discharge Date and Time
Print Language: [id number]
[2025-02-02 11:05] LABS: Urine Character Clear (Clear)
[2025-02-02] MEDS: TORADOL 15 MG IV ×2 (11:21→13:56)
[2025-02-02] MEDS: DILAUDID 1 MG IV (11:22)
[2025-02-02 11:26] LABS: Urine Squamous Cell >30 /LPF (Few)
[2025-02-02 11:28] LABS: Hematocrit 50.6 % (37.0-47.0); Hemoglobin 17.3 g/dL (12.0-16.0); Mean Corp Hgb Conc. 34.2 g/dL (33.0-37.0); Mean Corpuscular Volume 91.2 fL (81.0-99.0); Nucleated Red Blood Cells % 0 %; Platelet Count 196 10^3/uL (130-400); Red Cell Dist. Width 13.0 % (11.5-14.5)
[2025-02-02 11:31] LABS: Urine Red Blood Cell 0-2 /HPF (0-2)
[2025-02-02 11:44] LABS: ALT (SGPT) 19 U/L (0-35); AST (SGOT) 20 U/L (14-36); Albumin 4.4 g/dl (3.5-5.0); Alkaline Phosphatase 71 U/L (38-126); Blood Urea Nitrogen 12 mg/dl (7-17); Calcium 9.8 mg/dl (8.4-10.2); Carbon Dioxide 24 mmol/L (22-30); Chloride 107 mmol/L (98-107); Estimated Creatinine Clearance 84 ml/min; Glucose 112 mg/dl (70-99); Potassium 4.6 mmol/L (3.5-5.1); Sodium 138 mmol/L (135-145); Total Protein 6.9 g/dl (6.3-8.2); eGFR > 60.00
[2025-02-02] MEDS: NSS 1000 IV (11:49)
--- NOTE | 2025-02-02 13:11 | EDRN ---
Pt states her pain is increasing w/ JEdwar CONDON informed.
[2025-02-02] MEDS: DELTASONE 50 MG PO (16:25)
== END 2025-02-02 16:38 | disposition home or self-care (01) ==
LOC: EMR 09:26
PROVIDERS: Physician Assistant; EMERGENCY PHYSICIAN Emergency Medicine; FAMILY PHYSICIAN Family Medicine
DX: M54.16 Radiculopathy, lumbar region (principal); F17.200 Nicotine dependence, unspecified, uncomplicated; I10 Essential (primary) hypertension; W19.XXXA Unspecified fall, initial encounter
CPT/HCPCS: 99285; 96374; 96375; 96361 ×2; 96376; 72110; 73502; 74176; 80053; 81003; 81015; 85025; 87086